=== PATIENT | female | born 1985 | race Caucasian/White ===

== ENCOUNTER 2019-06-04 22:07 | Emergency (ER) | payer BC, OTHER ==
[2019-06-04 22:27] VITALS: BP 136/72
--- NOTE | 2019-06-04 22:27 | ED Physician Documentation ---
Foot Injury - HISTORIAN Historian: patient - HPI Stated Complaint: right ankle pain Chief Complaint: Ankle Injury Onset: minutes (30) Where: home Severity: moderate Context: fall Associated Symptoms:: popping sensation Modifying Factors:: pain on movement Further Comments: yes (She was stepping off a 6 in step or so and she felt a pop and her ankle/foot has had increased pain since. She did take 800 mg Ibuprofen before arrival with no aide in pain control) - ROS CONST: no problems - PAST HX Past History: none Immunizations: UTD Allergies/Adverse Reactions: Allergies Allergy/AdvReac Type Severity Reaction Status Date / Time Pertussis Vaccines Allergy Unknown Verified 06/04/19 22:24 Home Medications: Ambulatory Orders Medication Instructions Recorded Etonogestrel/Ethinyl Estradiol 06/04/19 [Nuvaring Vaginal Ring] Ibuprofen [Ibu] 1 tab PO PRN PRN 06/04/19 - SOCIAL HX Smoking History: non-smoker Alcohol Use: none Drug Use: none - FAMILY HX Family History: none - VITAL SIGNS Vital Signs: Vital Signs Temp Pulse Resp BP Pulse Ox 99.1 F 84 16 136/72 99 06/04/19 22:17 06/04/19 22:17 06/04/19 22:17 06/04/19 22:17 06/04/19 22:17 - REVIEWED ASSESSMENTS Nursing Assessment Reviewed: Yes Vitals Reviewed: Yes ED Results Lab/Radiology - Radiology Radiology Impressions: Three views of right ankle Clinical history: Fall today. Lateral pain. Findings: Examination of the right ankle in AP, lateral and oblique views fails to demonstrate evidence of fracture or dislocation. The ankle mortise is anatomic. Impression: 1. Negative study. Electronically signed on Jun 04, 2019 10:49:14 PM CDT by: Justin Barragan - Orders Orders: ED Orders Category Date Time Status ANKLE 3 VIEWS OR MORE [RAD] Stat Exams 06/04/19 Ordered FOOT 3 VIEWS OR MORE [RAD] Stat Exams 06/04/19 Ordered Foot Injury Physical Exam - Physical Exam General Appearance: no acute distress, alert Foot: right foot: bone tenderness, limited range of motion, pain, soft tissue tenderness, swelling, left foot: non-tender, normal inspection, normal range of motion, no evidence of injury, N/A: deformity, ecchymosis, infection, nail injury, nodule Ankle: right: bone tenderness, pain, soft tissue tenderness, left: non-tender, normal inspection, normal range of motion Gait: normal Neuro: sensation nml Vascular: no vascular compromise Leg/Knee/Thigh: uninjured above ankle Skin: intact, warm Head/ENT: nml inspection Neck/Back: nml inspection Resp/CVS: chest non-tender, breath sounds nml, heart sounds nml, no resp. distress, lungs clear, reg. rate & rhythm Abdomen: non-tender Discharge Clincal Impression: Ankle pain, left Qualifiers: Chronicity: acute Qualified Code(s): M25.572 - Pain in left ankle and joints of left foot Referrals: Primary Doctor,No [Primary Care Provider] - 2 Days Comments: 1. OTC meds as directed as needed for pain 2. Shaun wrap to ankle for support 3. Ice/elevate for comfort 4. Follow up with PCP In 2-4 days if no improvement 5. Return to ER for any increasing concerns Condition: Stable Disposition: 01 HOME, SELF-CARE Decision to Admit: NO Date of Decison to Admit: 06/04/19 Decision Time: 22:51
--- NOTE | 2019-06-04 22:52 | Diagnostic Imaging Report ---
CARMEN SHI [facility] [id number] [facility] [address] [place], [place]. [address] Report Submission Date: Jun 04, 2019 10:47:03 PM CDT Patient Study Name: NORBERTO BONILLA Date: Jun 04, 2019 10:15:32 PM CDT Modality Type: DX Gender: F Description: FOOT 3 VIEWS OR MORE : 83 Institution: [facility] Physician: CARMEN SHI Three views of the right foot Clinical history: Fall today. Lateral pain. Findings: Examination right foot in plantar, lateral and oblique views fails to demonstrate evidence of fracture, dislocation or other bone or joint pathology. Electronically signed on Jun 04, 2019 10:47:03 PM CDT by: Justin MATA
--- NOTE | 2019-06-04 22:53 | Diagnostic Imaging Report ---
CARMEN SHI [facility] [address] [facility] [address] [place], [place]. [address] Report Submission Date: Jun 04, 2019 10:49:14 PM CDT Patient Study Name: NORBERTO BONILLA Date: Jun 04, 2019 10:15:32 PM CDT Modality Type: DX Gender: F Description: ANKLE 3 VIEWS OR MORE : 83 Institution: [facility] Physician: CARMEN SHI Three views of right ankle Clinical history: Fall today. Lateral pain. Findings: Examination of the right ankle in AP, lateral and oblique views fails to demonstrate evidence of fracture or dislocation. The ankle mortise is anatomic. Impression: 1. Negative study. Electronically signed on Jun 04, 2019 10:49:14 PM CDT by: Justin MATA
== END 2019-06-04 23:06 | disposition home or self-care (01) ==
LOC: ED 22:07
DX: M25.572 Pain in left ankle and joints of left foot (principal); W19.XXXA Unspecified fall, initial encounter
CPT/HCPCS: 73610; 73630; 99282; 99283